=== PATIENT | male | born 1955 | race Caucasian/White ===

== ENCOUNTER 2017-02-23 14:45 | Emergency (ER) | payer BC, OTHER ==
[~2017-02-23] VITALS: Ht 188 cm; Wt 130.5 kg
[2017-02-23 14:45] VITALS: Ht 188 cm; Wt 130.5 kg
[~2017-02-23 14:45] MED LIST: CARV6.252 PO; CMD5 PO; IRBE1TAB50 PO; LSX80 PO; MCRK/20 PO; PRED20TA2 PO; SPIR25TA PO
[2017-02-23] MEDS ORDERED: ASPI81TA28 PO (15:39)
[2017-02-23] MEDS ORDERED: TORS5TAB10 PO (15:39)
[2017-02-23] MEDS ORDERED: AMLO-114 PO (15:39)
[2017-02-23] MEDS ORDERED: CHLO0.1222 PO (15:40)
[2017-02-23] MEDS ORDERED: CIPROFLOXACIN HCL 0.3% OP SOLN 2.5 ML BTL OP ONE (16:00)
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
[2017-02-23 16:48] VITALS: BP 138/90; PULSE 70; TEMP 37.2; O2SAT 94
== END 2017-02-23 16:48 | disposition home or self-care (01) ==
LOC: EDBD 14:45 → C.EDB 14:45
DX: S40.212A Abrasion of left shoulder, initial encounter (principal); H10.212 Acute toxic conjunctivitis, left eye; V85.5XXA Driver of special construction vehicle injured in nontraffic accident, initial encounter; Y92.69 Other specified industrial and construction area as the place of occurrence of the external cause; Y99.0 Civilian activity done for income or pay